=== PATIENT | male | born 1980 | race Caucasian/White ===

== ENCOUNTER 2017-01-23 06:13 | Day surgery (SDC) | payer OTHER ==
[~2017-01-23] VITALS: Ht 177.8 cm; Wt 90.7 kg
[2017-01-23 07:24] LABS: BASOPHILS 0.4 % (0.0-2.0); EOSINOPHILS 2.5 % (0-7); IMMATURE GRANULOCYTES 0.6 % (0-5); LYMPHOCYTES 30.5 % (15-50); MCH 30.2 pg (26.0-34.0); MCV 86.4 fL (80.0-100.0); MEAN PLATELET VOLUME 10.5 fL (7.4-10.4); MONOCYTES 8.3 % (2-11); NEUTROPHILS 57.7 % (40-80); PLATELET COUNT 173 10x3/uL (130-400); RBC 4.63 10x6/uL (4.20-6.10); WBC 8.4 10x3/uL (4.8-10.8)
[2017-01-23 07:38] LABS: CALC OSMOLALITY 281 mosm/kg (275-300); CALCIUM 8.8 mg/dL (8.5-10.1); CARBON DIOXIDE 31.6 mmol/L (21.0-32.0); CHLORIDE - SERUM 106 mmol/L (98-107); CREATININE - SERUM 0.9 mg/dL (0.6-1.3); GLUCOSE 91 mg/dL (74-106); POTASSIUM - SERUM 4.3 mmol/L (3.5-5.1); SODIUM 142 mmol/L (136-145); UREA NITROGEN 10 mg/dL (7-18); eGFR NON AFRICAN AMERICAN > 90 mL/min (90-120)
[2017-01-23] MEDS ORDERED: BAYER CHEWABLE81 MG PO (08:29)
[2017-01-23] MEDS ORDERED: NORVASC5 MG PO (08:29)
[2017-01-23] MEDS ORDERED: SOMA350 MG PO (08:30)
[2017-01-23] MEDS ORDERED: DULCOLAX10 MG/SUPP RC (08:30)
[2017-01-23] MEDS ORDERED: NEURONTIN600 MG PO (08:31)
[2017-01-23] MEDS ORDERED: MAALOX ADVANCE355 ML PO (08:32)
[2017-01-23] MEDS ORDERED: OXYBUTYNIN CHLOR5 MG PO (08:33)
[2017-01-23] MEDS ORDERED: ULTRAM50 MG PO (08:33)
[2017-01-23] MEDS ORDERED: MIRALAX17 GM PO (08:33)
[2017-01-23 08:41] VITALS: BP 145/84; Ht 177.8 cm; Wt 90.7 kg
--- NOTE | 2017-01-23 15:59 | NUR ---
0829 DR. WESTBROOK IS ILL AND SURGERY HAS BEEN CANCELLED TODAY. IV DC'D WITH CATH INTACT. COFFEE SERVED. REGULAR BREAKFAST SERVED. 09 PT HAS HAD BREAKFAST. THE OFFICE WILL RESCHEDULE PROCEDURE WHEN APPROVED BY [facility] AT LATER DATE, RELEASED WITH GUARDS X2. IN WC.
== END 2017-01-23 09:15 ==
LOC: D.OPS 06:13
PROVIDERS: Anesthesiology
DX: G35 Multiple sclerosis (principal); Z01.810 Encounter for preprocedural cardiovascular examination; Z01.811 Encounter for preprocedural respiratory examination; Z01.812 Encounter for preprocedural laboratory examination; Z53.8 Procedure and treatment not carried out for other reasons

== ENCOUNTER 2017-02-02 06:00 | Day surgery (SDC) | payer OTHER ==
[~2017-02-02] VITALS: Ht 177.8 cm; Wt 90.7 kg
[~2017-02-02 06:00] MED LIST: BAYER CHEWABLE81 MG PO; DULCOLAX10 MG/SUPP RC; MAALOX ADVANCE355 ML PO; MIRALAX17 GM PO; NEURONTIN600 MG PO; NORVASC5 MG PO; OXYBUTYNIN CHLOR5 MG PO; SOMA350 MG PO; ULTRAM50 MG PO
[2017-02-02 06:16] VITALS: BP 131/82; Ht 177.8 cm; Wt 90.7 kg
[2017-02-02 07:32] LABS: BASOPHILS 0.5 % (0.0-2.0); EOSINOPHILS 3.8 % (0-7); HEMATOCRIT 38.5 % (42.0-54.0); HEMOGLOBIN 13.3 g/dL (13.5-17.5); IMMATURE GRANULOCYTES 0.6 % (0-5); LYMPHOCYTES 42.6 % (15-50); MCH 29.9 pg (26.0-34.0); MCHC 34.5 g/dL (31.0-37.0); MCV 86.5 fL (80.0-100.0); MEAN PLATELET VOLUME 10.9 fL (7.4-10.4); MONOCYTES 10.1 % (2-11); NEUTROPHILS 42.4 % (40-80); PLATELET COUNT 168 10x3/uL (130-400); RBC 4.45 10x6/uL (4.20-6.10); RDW 13.3 % (11.5-14.5); WBC 6.3 10x3/uL (4.8-10.8)
[2017-02-02 07:47] LABS: CALC OSMOLALITY 286 mosm/kg (275-300); CALCIUM 8.5 mg/dL (8.5-10.1); CARBON DIOXIDE 31.7 mmol/L (21.0-32.0); CHLORIDE - SERUM 107 mmol/L (98-107); CREATININE - SERUM 0.9 mg/dL (0.6-1.3); GLUCOSE 83 mg/dL (74-106); POTASSIUM - SERUM 4.2 mmol/L (3.5-5.1); SODIUM 145 mmol/L (136-145); UREA NITROGEN 9 mg/dL (7-18); eGFR NON AFRICAN AMERICAN > 90 mL/min (90-120)
--- NOTE | 2017-02-02 09:49 | NUR ---
0930-RECD FROM PACU, GUARD PRESENT. AROUSES EASILY. IV PATENT. LEFT CHEST INCISION DRY AND INTACT WITH STERI STRIP. FULL LIQUIDS SERVED.
--- NOTE | 2017-02-09 09:40 | OP ---
PATIENT NAME: KASSIDY WILCOX MEDICAL RECORD: [id number] :80 LOCATION:[facility], [facility]ATED [facility]IN [facility] ADMISSION DATE: SURGEON: ISREAL WESTBROOK MD DATE OF OPERATION: 02/02/2017 PREOPERATIVE DIAGNOSES: Multiple sclerosis, in need of monthly IV infusions and the patient with poor peripheral IV access. POSTOPERATIVE DIAGNOSES: Multiple sclerosis, in need of monthly IV infusions and the patient with poor peripheral IV access. PROCEDURES: 1. Placement of left infraclavicular PowerPort under fluoroscopic guidance. 2. Immediate surgeon interpretation of fluoroscopic images by the surgeon. SURGEON: Isreal Westbrook MD HOGSHEAD HAND: None. BLOOD LOSS: Minimal. ANESTHESIA: General. COMPLICATIONS: None. The risks, possible complications, and alternatives to the procedure were explained to the patient. He elects to proceed. The discussion specifically included, but was not limited to, bleeding requiring emergency reoperation, infection, pneumothorax, the fact that port could wear out, eventually it could break, the tubing could clot off. We decided to place the port on the left side and if this was not an accessible area, then we would switch over to the right side to place the port. I saw the patient preoperatively. I answer his questions. OPERATIVE COURSE: The patient was conveyed to the operating room electively on 02/02/2017. General anesthesia was induced by anesthesia staff. The left side of his chest were sterilely prepped and draped. A transverse incision was accomplished in the left infraclavicular area. Sharp dissection was carried down to the level of the pectoralis fascia. A subcutaneous pocket was created in a caudad direction. I excised some of the subcutaneous adipose tissue in the pocket to allow for easier access of the port. I dissected in the deltopectoral groove. There was a diminutive cephalic vein that would not accommodate a catheter. Therefore, under fluoroscopy, I accessed the subclavian vein in an antegrade fashion through the port incision. This was accomplished on the 1st needle stick. A guidewire passed easily. This was visualized under fluoroscopy. No radiologist was present for this procedure. Static fluoroscopic images were obtained and placed in the PACS system. The surgeon interpretation of radiographic images is dictated within the body of this operative note. Over the guidewire, under fluoroscopy, advanced the dilator sheath. The dilator and wire were removed. Through the sheath, I advanced the PowerPort catheter. It was advanced to the cavoatrial junction. The catheter was shortened. It was OPERATIVE REPORT [id number] KASSIDY WILCOX attached to the PowerPort. A locking device was firmly engaged. The port was then placed in the subcutaneous pocket. It was sutured to the underlying pectoralis fascia with 3-point fixation utilizing 3-0 Prolenes. I irrigated in the port pocket. There was no bleeding. The port accessed easily. It flushed easily. It also aspirated dark, nonpulsatile blood. The subcutaneous tissues were closed with interrupted 3-0 Vicryl sutures. The skin was approximated with a running intracuticular 4-0 Vicryl. Benzoin and Steri-Strips were applied. The patient was then extubated and conveyed to post-anesthesia care unit where he was in stable condition. He will be dismissed back to the senior care with hydrocodone for pain. The port can be used immediately. I can see the patient on rounds out of the senior care should the patient develop a complication related to this operative procedure. TRANSINT:[id number] Voice Confirmation ID: [id number] DOCUMENT ID: [id number] CC: Dr. Santos Diggs ISREAL WESTBROOK MD at 0940 CC: SUSAN TAO ROBERT MD, DANDRE CARSON MD, [id number] and LINDA LIAO DICTATION DATE: 02/02/17912 STUDENT DEVELOPMENT COORDINATOR: 02/02/17 0936 [facility] 02/02/[address] [address]
--- NOTE | 2017-02-09 09:40 | HP ---
PATIENT: KASSIDY WILCOX MEDICAL RECORD: [id number] ACCOUNT: [id number] LOCATION:[facility] : 80 ADMISSION DATE: 02/02/17 HISTORY AND PHYSICAL EXAMINATION CHIEF COMPLAINT: Poor IV access. HISTORY OF PRESENT ILLNESS: The patient has multiple sclerosis. He requires monthly IV infusions. He has poor peripheral access. I have been asked to place a port. When I placed him on the left it is not a situation that can be accomplished then I placed it on the right. We discussed the risks, possible complications, and alternatives to the procedure including the risk of bleeding requiring emergency reoperation, infection, slippage of the port, the port could break, it could wear out, it could become infected. The patient elects to proceed. PAST MEDICAL AND SURGICAL HISTORY: Hypertension, multiple sclerosis, gastroesophageal reflux, history of appendectomy, history of arthritis. ALLERGIES: No known drug allergies. HOME MEDICINES: Amlodipine, aspirin, Bisacodyl suppositories, Soma, dicyclomine, gabapentin, hydrochlorothiazide, losartan, Naprosyn, oxybutynin, polyethylene glycol and Ultram. REVIEW OF SYSTEMS: Negative for diabetes or thyroid problems, negative for renal disease or hepatitis. PHYSICAL EXAMINATION: GENERAL: The patient does not appear acutely ill. He does appear chronically ill. VITAL SIGNS: Reviewed. HEAD: External ears appear normal. EYES: Extraocular movements are intact. NECK: Trachea is midline. CHEST: No intercostal retractions. PULMONARY: Nonlabored, no stridor. ABDOMEN: No peritonitis with movement. EXTREMITIES: Flexion contractures are present. IMPRESSION: Multiple sclerosis and need of monthly IV infusions and the patient has poor peripheral IV access. PLAN: Will be placement of a PowerPort left versus right. TRANSINT:[id number] Voice Confirmation ID: [id number] DOCUMENT ID: [id number] CC: Dr. Santos Diggs HISTORY AND PHYSICAL [id number] BRENDENISREAL BARROSO MD at 0940 CC: SUSAN TAO ROBERT MD, DANDRE CARSON MD, [id number] MD and LINDA LIAO DICTATION DATE: 02/02/17 0750 SENIOR SHAREPOINT DEVELOPER: 02/02/17 0840 [facility] 02/02/17 [facility] [address] [id number]
== END 2017-02-02 10:30 ==
LOC: D.OPS 06:00
PROVIDERS: Anesthesiology
DX: G35 Multiple sclerosis (principal)

== ENCOUNTER 2018-10-09 05:27 | Day surgery (SDC) | payer OTHER ==
[~2018-10-09] VITALS: Ht 177.8 cm; Wt 81.6 kg
--- NOTE | ~2018-10-09 | OP ---
PATIENT NAME: KASSIDY YAN MEDICAL RECORD: [id number] :80 LOCATION:[facility] ADMISSION DATE: SURGEON: ISREAL WESTBROOK MD DATE OF OPERATION: 10/09/2018 PREOPERATIVE DIAGNOSIS: Infected subcutaneous port and vascular catheter. POSTOPERATIVE DIAGNOSIS: Infected subcutaneous port and vascular catheter. PROCEDURE: Removal of subcutaneous port and vascular catheter. SURGEON: Isreal Westbrook MD CHRONOMETER REPAIRER: None. BLOOD LOSS: Minimal. ANESTHESIA: General. COMPLICATIONS: None. The risks, possible complication, alternatives to procedure were explained to the patient. He elects to proceed. OPERATIVE COURSE: The patient was conveyed to the operating room electively on 10/09/2018. General anesthesia was induced by the anesthesia staff. The chest was sterilely prepped and draped. A transverse incision was accomplished through the scar. I dissected it down to the port. Sutures from the port to the underlying pseudo bursa were cut. The sutures were removed. I then placed a pursestring suture around the fibrous tract into the vascular system. This was a pursestring suture of 3-0 Vicryl. The subcutaneous port and vascular catheter were then removed in their entireties. I then cinched down and tied the 3-0 Vicryl suture closing the fibrous tract into the vascular system. The pseudo bursa was cauterized. Cultures of the catheter were obtained including aerobic, anaerobic and fungal cultures. The subdermis was approximated with interrupted 3-0 Vicryl. The dermis was approximated with interrupted 3-0 Vicryl. Benzoin and Steri-Strips were applied. The patient was then extubated and conveyed to the post-anesthesia care unit where he was in stable condition. He will be dismissed back to the intermediate with a few hydrocodone for pain. There is no need for him to follow up with me in the office unless he develops a complication related to this operative procedure. TRANSINT:[id number] Voice Confirmation ID: [id number] DOCUMENT ID: [id number] OPERATIVE REPORT [id number] KASSIDY YAN ROBERT MD at 1544 CC: ALBERTO DONALD MD, ISREAL DAVIS MD, ERICK MANUEL MD and [id number] DICTATION DATE: 10/09/18 1000 RECYCLING COORDINATOR: 10/09/18 1033 [facility] 10/09/18 [facility] [address] [id number]
[2018-10-09 07:28] LABS: BASOPHILS 0.5 % (0-2); EOSINOPHILS 3.3 % (0-7); HEMATOCRIT 38.2 % (42.0-54.0); HEMOGLOBIN 13.3 g/dL (13.5-17.5); IMMATURE GRANULOCYTES 1.1 % (0-5); LYMPHOCYTES 33.1 % (15-50); MCH 30.2 pg (26.0-34.0); MCHC 34.8 g/dL (31.0-37.0); MCV 86.6 fL (80.0-100.0); MONOCYTES 9.9 % (2-11); NEUTROPHILS 52.1 % (40-80); PLATELET COUNT 171 10x3/uL (130-400); RBC 4.41 10x6/uL (4.20-6.10); RDW 14.8 % (11.5-14.5); WBC 9.9 10x3/uL (4.8-10.8)
[2018-10-09] MEDS ORDERED: BACLOFEN20 M1 (07:43)
[2018-10-09 07:44] VITALS: BP 131/90; Ht 177.8 cm; Wt 81.6 kg
[2018-10-09 08:48] LABS: APPEARANCE HAZY (CLEAR); BILIRUBIN NEGATIVE (NEGATIVE); COLOR YELLOW (YELLOW); GLUCOSE NEGATIVE (NEGATIVE); KETONE NEGATIVE (NEGATIVE); NITRITE NEGATIVE (NEGATIVE); PROTEIN NEGATIVE (NEGATIVE); UROBILINOGEN NORMAL (NORMAL)
[2018-10-09 08:50] LABS: BACTERIA MODERATE /hpf (NONE SEEN)
[2018-10-09 08:51] LABS: EPITHELIAL CELLS OCC /hpf (0-5); RED CELLS - URINE 0-5 /hpf (0-5)
[2018-10-11 13:15] LABS: FUNGUS STAIN Final report (())
== END 2018-10-09 11:19 | disposition home or self-care (01) ==
LOC: D.OPS 05:27
PROVIDERS: Anesthesiology; Surgery
DX: T80.219A Unspecified infection due to central venous catheter, initial encounter (principal); Z01.812 Encounter for preprocedural laboratory examination

== ENCOUNTER 2019-01-29 04:56 | Day surgery (SDC) | payer OTHER ==
[~2019-01-29] VITALS: Ht 177.8 cm; Wt 86.2 kg
[~2019-01-29 04:56] MED LIST changes: +BACLOFEN20 M1
[2019-01-29] MEDS ORDERED: BACLOFEN10 MG (05:17)
[2019-01-29] MEDS ORDERED: NORVASC10 MG PO (05:17)
[2019-01-29 05:50] LABS: HEMATOCRIT 40.7 % (42.0-54.0); HEMOGLOBIN 14.1 g/dL (13.5-17.5); MCH 29.4 pg (26.0-34.0); MCHC 34.6 g/dL (31.0-37.0); MEAN PLATELET VOLUME 10.4 fL (7.4-10.4); RBC 4.79 10x6/uL (4.20-6.10); RDW 13.6 % (11.5-14.5); WBC 7.3 10x3/uL (4.8-10.8)
[2019-01-29 06:28] VITALS: BP 104/70; Ht 177.8 cm; Wt 86.2 kg
--- NOTE | 2019-01-29 10:02 | NUR ---
VANCOMYCIN 1 GRAM IN 250CC OF NORMAL SALINE INFUSING ON ADMIT
--- NOTE | 2019-01-30 08:56 | OP ---
PATIENT NAME: KASSIDY YAN MEDICAL RECORD: [id number] :80 LOCATION:D.OPS ADMISSION DATE: SURGEON: ISREAL WESTBROOK MD DATE OF OPERATION: 01/29/2019 PREOPERATIVE DIAGNOSES: 1. Multiple sclerosis in need of frequent IV access for medications. 2. History of infected left infraclavicular port. POSTOPERATIVE DIAGNOSES: 1. Multiple sclerosis in need of frequent IV access for medications. 2. History of infected left infraclavicular port. PROCEDURES: 1. Left infraclavicular PowerPort placement. 2. Immediate surgeon interpretation of the fluoroscopic images. SURGEON: Isreal Westbrook MD DYE BECK REEL OPERATOR: None. BLOOD LOSS: Minimal. ANESTHESIA: General. COMPLICATIONS: None. The risks, possible complications and alternatives to the procedure were explained to the patient. He elects to proceed. We discussed putting the port on the right side versus putting the port on the left, even though his infected port was on the left side. It has been a while since it was removed and he has no systemic signs of infection. The site where the port was removed is without erythema or excess heat. He has had no fever. The surgeon interpretation of the fluoroscopic images is dictated within the body of this operative note. OPERATIVE COURSE: The patient was conveyed to the operating room electively on 01/29/2019. General anesthesia was induced by the anesthesia staff. The patient was placed supine. The left neck and left chest was sterilely prepped and draped. Under ultrasonographic guidance, I percutaneously accessed the left internal jugular vein. A guidewire was advanced easily. This was visualized under fluoroscopy. No radiologist was present for this procedure. Static fluoroscopic images were obtained and are kept in the PACS system. The surgeon interpretation of the radiographic images is dictated within the body of this operative note. A left infraclavicular transverse incision was accomplished in the superior aspect of the anterior chest. I dissected down to the pectoralis fascia. A subcutaneous pocket was created in a caudad direction. A skin incision was accomplished around the wire. I tunneled a PowerPort catheter from the chest incision to the neck incision. A dilator sheath was then advanced over the wire. The dilator and wire were removed. Through the sheath, I advanced the PowerPort catheter to the cavoatrial junction. The OPERATIVE REPORT [id number] KASSIDY YAN sheath was then removed. I shortened the PowerPort catheter. It was attached to PowerPort. The locking device was firmly engaged. The port was placed in the subcutaneous pocket. Three point fixation was utilized to suture the PowerPort to the underlying pectoralis fascia. This is to prevent the port from flipping. Under fluoroscopy, I took another look at the PowerPort. There was no apparent kinking or twisting of the port. No radiographic evidence of complication. The skin incision at the neck was closed with a single intracuticular 3-0 Vicryl suture. The port incision was closed with interrupted 3-0 Vicryl for the deep dermis as well as a running intracuticular 3-0 Vicryl for the skin. Sterile dressings were applied. I then accessed the port. It accessed easily. It aspirated dark, nonpulsatile blood. I then flushed it with heparinized saline. The patient was then extubated and conveyed to the post-anesthesia care unit. A chest x-ray is pending. I will see the patient on a p.r.n. basis. There is no need for the patient to see me in the office unless he develops a complication related to this operative procedure. If there is a problem, I can see him out of the custodial when I do rounds out there. TRANSINT:[id number] Voice Confirmation ID: [id number] DOCUMENT ID: [id number] ISREAL WESTBROOK MD at 0856 CC: ALBERTO DONALD MD, DR. JOSE VERA FLOSS, ROBERT MD, [id number] ERICK MANUEL MD and LINDA LIAO DICTATION DATE: 01/29/19 0958 GAS PUMPER: 01/29/19 1100 [facility] 01/29/19 [address] [place] [id number] [place] [id number]
== END 2019-01-29 11:50 | disposition home or self-care (01) ==
LOC: D.OPS 04:56
PROVIDERS: Anesthesiology; ATTEND Surgery
DX: G35 Multiple sclerosis (principal); Z01.812 Encounter for preprocedural laboratory examination

== ENCOUNTER 2019-06-18 06:56 | Day surgery (SDC) | payer OTHER ==
[~2019-06-18] VITALS: Ht 177.8 cm; Wt 90.7 kg
[~2019-06-18 06:56] MED LIST changes: +BACLOFEN10 MG; +NORVASC10 MG PO
[2019-06-18] MEDS ORDERED: AMPYRA10 MG PO (07:35)
[2019-06-18 07:40] VITALS: BP 118/69; Ht 177.8 cm; Wt 90.7 kg
[2019-06-18 08:10] LABS: HEMATOCRIT 37.8 % (42.0-54.0); HEMOGLOBIN 13.5 g/dL (13.5-17.5); MCH 30.1 pg (26.0-34.0); MCHC 35.7 g/dL (31.0-37.0); MCV 84.2 fL (80.0-100.0); MEAN PLATELET VOLUME 10.7 fL (7.4-10.4); RBC 4.49 10x6/uL (4.20-6.10); RDW 12.9 % (11.5-14.5); WBC 6.8 10x3/uL (4.8-10.8)
--- NOTE | 2019-06-18 13:59 | NUR ---
1355 [place] DIET SERVED. GUARDS AT BEDSIDE.
--- NOTE | 2019-06-18 15:11 | OP ---
PATIENT NAME: KASSIDY YAN MEDICAL RECORD: [id number] :80 LOCATION:[facility] ADMISSION DATE: SURGEON: ISREAL WESTBROOK MD DATE OF OPERATION: 06/18/2019 PREOPERATIVE DIAGNOSIS: Infected subcutaneous port and vascular catheter. POSTOPERATIVE DIAGNOSES: Infected subcutaneous port and vascular catheter with no evidence of purulence within the port pocket. PROCEDURE: Removal of the left chest subcutaneous port and vascular catheter. SURGEON: Isreal Westbrook MD FORESTRY FIRE AID: None. BLOOD LOSS: Minimal. ANESTHESIA: General. COMPLICATIONS: None. The risks, possible complications and alternatives to the procedure were explained to the patient. He elects to proceed. The discussion specifically included, but was not limited to, bleeding requiring emergency reoperation and infection. The plan on this patient is to remove this left-sided port for the patient to have antibiotics for a week or two to "sterilize his blood" and then place a port on the right side. The patient receives injections for multiple sclerosis. No purulence was identified within the port pocket. The patient states that he has been seeing purulence when the port was accessed. OPERATIVE COURSE: The patient was conveyed to the operating room electively on 06/18/2019. General anesthesia was induced by the anesthesia staff. The left chest was sterilely prepped and draped. An incision was accomplished cephalad to the port. I incised down to the port pocket. I delivered the port. A pursestring suture of 3-0 Vicryl was applied around the vascular catheter. The port and the vascular catheter were removed in their entireties. I cinched down on the pursestring suture. A suture material from within the port was removed. I cauterized the pseudo bursa that was the port pocket after the cultures were obtained. Subcutaneous tissues were approximated with interrupted 3-0 Vicryls. The skin was approximated with a running intracuticular 3-0 Vicryl. Benzoin and Steri-Strips were applied. The patient was extubated and conveyed post-anesthesia care unit where he was in stable condition. I think he will only need an anti-inflammatory or perhaps Tylenol for pain. TRANSINT:[id number] Voice Confirmation ID: [id number] DOCUMENT ID: [id number] OPERATIVE REPORT [id number] KASSIDY YAN ROBERT MD at 1517 CC: ALBERTO DONALD MD [id number] DICTATION DATE: 06/18/19 1303 FUR CUTTER: 06/18/19 1314 [facility] 06/18/19 [facility] [address] [place], [place]
== END 2019-06-18 14:55 | disposition home or self-care (01) ==
LOC: D.OPS 06:56
PROVIDERS: Anesthesiology; ATTEND Surgery
DX: T80.219A Unspecified infection due to central venous catheter, initial encounter (principal); Z01.812 Encounter for preprocedural laboratory examination

== ENCOUNTER 2019-08-13 05:27 | Day surgery (SDC) | payer OTHER ==
[~2019-08-13] VITALS: Ht 177.8 cm; Wt 90.7 kg
[~2019-08-13 05:27] MED LIST changes: +AMPYRA10 MG PO
[2019-08-13 06:13] VITALS: BP 131/93; Ht 177.8 cm; Wt 90.7 kg
[2019-08-13 07:05] LABS: HEMOGLOBIN 14.5 g/dL (13.5-17.5); MCHC 35.4 g/dL (31.0-37.0); MCV 84.7 fL (80.0-100.0); MEAN PLATELET VOLUME 10.7 fL (7.4-10.4); RBC 4.84 10x6/uL (4.20-6.10); WBC 7.8 10x3/uL (4.8-10.8)
--- NOTE | 2019-08-13 10:54 | NUR ---
1030-REC'D FROM RR. AWAKE AND ALERT. DRESSING TO RIGHT UPPER CHEST CDI. VSS. CO'S AT BEDSIDE WITH CL IN EASY REACH. FULL LIQUID TRAY IN ROOM.
--- NOTE | 2019-08-13 12:00 | NUR ---
1143-DISCHARGE CRITERIA MET. IV REMOVED WITH CATH INTACT,DISPOSED INTO SHARPS CONTAINER,COVERED SITE WITH BANDAID. REVIEWED POST OPERATIVE INSTRUCTIONS WITH PT,CO'S AT BEDSIDE. VERBALIZED UNDERSTANDING WITHOUT QUESTIONS OR CONCERNS. VSS. DRESSING TO RIGHT UPPER CHEST CDI. ESCORTED OUT VIA W/C WITH [facility] DRIVING HOME.
--- NOTE | 2019-09-19 12:02 | OP ---
PATIENT NAME: KASSIDY YAN MEDICAL RECORD: [id number] :80 [facility] DATE: SURGEON: ISREAL WESTBROOK MD DATE OF OPERATION: 08/13/2019 PREOPERATIVE DIAGNOSIS: Multiple sclerosis in need of IV access for IV medications with no significant peripheral IV access. POSTOPERATIVE DIAGNOSIS: Multiple sclerosis in need of IV access for IV medications with no significant peripheral IV access. PROCEDURE: 1. Placement of right infraclavicular PowerPort under fluoroscopic guidance. 2. Immediate surgeon interpretation of the fluoroscopic images. SURGEON: Isreal Westbrook MD DIESEL SERVICE APPRENTICE: None. BLOOD LOSS: Minimal. ANESTHESIA: General. COMPLICATIONS: None. The patient's last port was on the left side. Reportedly, it had become infected. For that reason, we are going to try to place a port on the right side as we wanted to avoid a possibly recently infected area on the left. OPERATIVE DESCRIPTION: The right neck and right chest was sterilely prepped and draped. Under ultrasonographic guidance, I percutaneously accessed the right internal jugular vein in an antegrade fashion. A small skin rigoberto was accomplished. In the right anterior superior infraclavicular chest, a transverse incision was accomplished. Dissection was carried down to the level of the pectoralis fascia. A pocket was created bluntly in a caudad direction. I then excised some of the subcutaneous adipose tissue to allow for easier access of the port. I tunneled the catheter from the chest incision to the neck incision. Over the wire, I dilated with a dilator sheath. This was visualized under fluoroscopy. No radiologist was present for this procedure. Fluoroscopic images were obtained and are kept in the PACS system. The dilator and wire were removed. Through the sheath, I advanced the PowerPort catheter. It was advanced to the cavoatrial junction under fluoroscopy. I then cut the PowerPort catheter. It was attached to the port. The locking device was firmly engaged. The PowerPort was then placed in the subcutaneous pocket. It was sutured with 3-point fixation to the underlying pectoralis fascia with 3-0 Prolenes. I irrigated the port pocket with normal saline. The neck incision was closed with interrupted intracuticular 3-0 Vicryls. The subdermis at the port site was closed with interrupted 3-0 Vicryl sutures. The skin was approximated with a running intracuticular 3-0 Vicryl. The images over the right lung apex revealed no radiographic evidence of complication. Images over the mediastinum revealed no radiographic evidence of complication with the tip of the catheter around the cavoatrial junction. I then percutaneously accessed the port. It accessed OPERATIVE REPORT [id number] KASSIDY YAN easily. It aspirated dark, nonpulsatile blood. I then flushed it with heparin flush. A sterile dressing was applied. The patient was then extubated and conveyed to the post-anesthesia care unit where he was in stable condition. I have written a prescription for a narcotic analgesic. The port can be used immediately. There is no need for the patient to follow up with me in the office unless he develops a complication related to this operative procedure. I can see him on rounds if necessary at the [place] unit during my GI clinic days. TRANSINT:[id number] Voice Confirmation ID: [id number] DOCUMENT ID: [id number] 08/13/2019 Edited for bag sorter error, dmm. ISREAL WESTBROOK MD at 1202 CC: [id number] DICTATION DATE: 08/13/19 1114 SOCIAL SERVICE AGENCY DIRECTOR: 08/13/19 1133 [facility] 08/13/19 [facility] [address] [place] [address]
== END 2019-08-13 11:43 | disposition home or self-care (01) ==
LOC: D.OPS 05:27
PROVIDERS: Anesthesiology; ATTEND Surgery
DX: G35 Multiple sclerosis (principal)